=== PATIENT | female | born 1955 | race Caucasian/White ===

== ENCOUNTER 2024-07-25 12:58 | Emergency (ER) | payer MEDICARE, OTHER | END 2024-07-25 16:20 | disposition home or self-care (01) | LOC: DL.ED 12:58 | DX: S82.832A Other fracture of upper and lower end of left fibula, initial encounter for closed fracture (principal); Z86.16 Personal history of COVID-19; W19.XXXA Unspecified fall, initial encounter | CPT/HCPCS: 29515; 73590-RT; 73630-RT; 99283-25; 99284 ==